=== PATIENT | female | born 1970 | race American Indian/Alaskan Native ===

== ENCOUNTER 2019-06-05 11:27 | Observation (INO) | payer OTHER ==
--- NOTE | 2019-06-05 11:46 | Event Note ---
ED Screening Note Date of service: 06/05/19 Time: 11:38 ED Screening Note: 49 y/o female comes in for abdominal pain times months. Has a headache. Pain 06/04. This initial assessment/diagnostic orders/clinical plan/treatment(s) is/are subject to change based on patients health status, clinical progression and re- assessment by fellow clinical providers in the ED. Further treatment and workup at subsequent clinical providers discretion. Patient/guardian urged not to elope from the ED as their condition may be serious if not clinically assessed and managed. Initial orders include:
--- NOTE | 2019-06-05 12:14 | XRay Report ---
CHEST 2 VIEWS INDICATION: epigastric pain elevated Blood pressure. COMPARISON: None FINDINGS: Support devices: None. Heart: Within normal limits. Lungs/pleura: No acute air space or interstitial disease. No pneumothorax. Additional findings: None. IMPRESSION: No acute findings. Signer Name: Daryl Moreno Jr, MD Signed: 06/05/2019 12:10 PM Workstation Name: [id number]
[2019-06-05] MEDS ORDERED: ZOFRAN IV ONE (13:03)
[2019-06-05] MEDS ORDERED: BENTYL IM ONE (13:03)
[2019-06-05] MEDS ORDERED: APRESOLINE IV ONE (13:06)
[2019-06-05 13:21] LABS: Basophils % (Auto) 0.3 % (0.0-1.8); Hematocrit 44.5 % (30.3-42.9); Lymphocytes # (Auto) 1.1 K/mm3 (1.2-5.4); Lymphocytes % (Auto) 15.7 % (13.4-35.0); Mean Corpuscular HGB Conc 34 % (30-34); Mean Corpuscular Volume 90 fl (79-97); Monocytes # (Auto) 0.2 K/mm3 (0.0-0.8); Monocytes % (Auto) 3.3 % (0.0-7.3); Platelet Count 238 K/mm3 (140-440); Red Blood Count 4.95 M/mm3 (3.65-5.03); Red Cell Distribution Width 14.2 % (13.2-15.2)
[2019-06-05 13:27] LABS: Bacteria,Urine 3+ /HPF (Negative); Bilirubin,Urine NEG (Negative); Blood,Urine SM (Negative); Color,Urine Yellow (Yellow); Hyaline Casts,Urine 1 /LPF; Mucus,Urine FEW /HPF; Urobilinogen,Urine < 2.0 mg/dL (<2.0)
[2019-06-05 13:27] LABS: Alanine Aminotransferase 8 units/L (7-56); Albumin 4.7 g/dL (3.9-5); BUN/Creatinine Ratio 15; Blood Urea Nitrogen 12 mg/dL (7-17); Calcium 9.6 mg/dL (8.4-10.2); Hemolysis Index 1
[2019-06-05 13:28] LABS: Bilirubin,Direct < 0.2 mg/dL (0-0.2)
[2019-06-05] MEDS ORDERED: K-DUR PO ONE (13:46)
[2019-06-05] MEDS ORDERED: MORPHINE IV ONE (14:50)
--- NOTE | 2019-06-05 14:51 | Cat Scan Report ---
CT ABDOMEN AND PELVIS WITH CONTRAST HISTORY: Abdominal pain for 3 months COMPARISON: None. TECHNIQUE: Axial CT images were obtained through the abdomen and pelvis after 100 cc of Omnipaque 300 intravenously. Sagittal and coronal reformatted images. All CT scans at this location are performed using CT dose reduction for ALARA by means of automated exposure control. FINDINGS: CT ABDOMEN: Lung Bases: Clear. Liver: No significant abnormality. Biliary: No significant abnormality. Spleen: No significant abnormality. Unenlarged. Pancreas: No significant abnormality. Adrenals: No significant abnormality. Kidneys: No significant abnormality. Lymphatics: No lymphadenopathy. Vasculature: No significant abnormality. Bowel/Peritoneum: No evidence for bowel obstruction or focal inflammation. There are scattered divert icula throughout the length of the colon. No free fluid or free air. Normal appendix. CT PELVIS: : Hysterectomy changes are suspected. No adnexal abnormality. The bladder and distal ureters are wi thin normal limits. Osseous Structures: No significant abnormality. Additional Findings: None IMPRESSION: No acute process is identified in the abdomen or pelvis. Hysterectomy. Mild diverticulosis of the colon. Signer Name: Daryl Moreno Jr, MD Signed: 06/05/2019 2:47 PM Workstation Name: [id number]
--- NOTE | 2019-06-05 15:11 | Emergency Department Report ---
HPI - General Chief Complaint: Abdominal Pain Time Seen by Provider: 06/05/19 11:37 - HPI HPI: 49-year-old -Citizen Of [place] female presents to the emergency department with complaint of mid upper abdominal pain with nausea and vomiting. Patient states that it feels like there is something "sitting in there." She describes it as a progressively worsening pain. While overall it has been going on for the past 2 months, it has worsened over the past few days. She says that she will get increased abdominal pain, nausea and vomiting with any food or liquid that she consumes. The patient has tried laxatives, cleansers, tea, [id number] medication, and nothing has provided her any relief. She says she has been evaluated at other emergency departments and has even seen gastroenterology and "nobody can figure out what is wrong." She is adamant that there is something causing her pain. She denies any dysuria, vaginal bleeding or discharge, fever. She has a primary care physician but they are new to her with this new insurance and she has not yet seen them and was told it was 3 weeks until she could get an appointment. ED Past Medical Hx - Past Medical History Previous Medical History?: Yes Hx Hypertension: Yes - Surgical History Past Surgical History?: Yes Additional Surgical History: Hysterectomy - Social History Smoking Status: Never Smoker Substance Use Type: None - Medications Home Medications: Home Medications Medication Instructions Recorded Confirmed Last Taken Type amLODIPine [Norvasc] 10 mg PO DAILY 06/05/19 06/05/19 06/05/19 History ED Review of Systems ROS: Stated complaint: CHEST PAINS/UPSET STOMACH Other details as noted in HPI Comment: All other systems reviewed and negative Constitutional: denies: chills, fever Eyes: denies: eye pain, vision change ENT: denies: ear pain, throat pain Respiratory: denies: cough, shortness of breath Cardiovascular: denies: chest pain, palpitations Gastrointestinal: abdominal pain, nausea, vomiting Genitourinary: denies: dysuria, discharge Musculoskeletal: denies: back pain, arthralgia Skin: denies: rash, lesions Neurological: denies: headache, weakness Physical Exam - Physical Exam Vital Signs: Vital Signs 06/05/19 06/05/19 06/05/19 11:46 13:17 14:30 Temperature 98.1 F Pulse Rate 110 H 83 86 Respiratory 18 16 Rate Blood Pressure 244/133 237/136 Blood Pressure 190/108 [Left] O2 Sat by Pulse 99 96 Oximetry 06/05/19 14:38 Temperature Pulse Rate 100 H Respiratory 16 Rate Blood Pressure Blood Pressure 190/101 [Left] O2 Sat by Pulse 96 Oximetry Physical Exam: GENERAL: The patient is well-developed well-nourished. HENT: Normocephalic. Atraumatic. Patient has moist mucous membranes. EYES: Extraocular motions are intact. Pupils equal reactive to light bilaterally. NECK: Supple. Trachea is midline. CHEST/LUNGS: Clear to auscultation. There is no respiratory distress noted. HEART/CARDIOVASCULAR: Regular. There is mild tachycardia. There is no murmur. ABDOMEN: Abdomen is soft. Upper abdominal tenderness to palpation. Mild guarding. Patient has normal bowel sounds. There is no abdominal distention. SKIN: Skin is warm and dry. NEURO: The patient is awake, alert, and oriented. The patient is cooperative. The patient has no focal neurologic deficits. Normal speech. MUSCULOSKELETAL: There is no tenderness or deformity. There is no evidence of acute injury. ED Course Vital Signs 06/05/19 06/05/19 06/05/19 11:46 13:17 14:30 Temperature 98.1 F Pulse Rate 110 H 83 86 Respiratory 18 16 Rate Blood Pressure 244/133 237/136 Blood Pressure 190/108 [Left] O2 Sat by Pulse 99 96 Oximetry 06/05/19 14:38 Temperature Pulse Rate 100 H Respiratory 16 Rate Blood Pressure Blood Pressure 190/101 [Left] O2 Sat by Pulse 96 Oximetry ED Medical Decision Making - Lab Data Result diagrams: 06/05/19 12:26 06/05/19 12:26 - EKG Data -: EKG Interpreted by Me EKG shows normal: sinus rhythm, axis, intervals, QRS complexes, ST-T waves Rate: normal - EKG Data When compared to previous EKG there are: previous EKG unavailable Interpretation: normal EKG - Radiology Data Radiology results: report reviewed, image reviewed interpreted by me: Chest x-ray does not show any acute process. There are no pleural effusions, obvious pneumonia and there is no pneumothorax. CT of the abdomen and pelvis with IV contrast shows some scattered diverticula but otherwise no acute process. Previous hysterectomy. - Medical Decision Making This patient presents with acute on chronic abdominal pain with some nausea and vomiting. On examination she has reproducible upper abdominal tenderness to palpation with some mild guarding. The abdomen is soft, nondistended. Patient's labs have been unremarkable. CT of the abdomen and pelvis with IV contrast shows some scattered diverticula but no diverticulitis and no other acute process. Patient was given some Bentyl, Zofran, morphine and continues to have moderate to significant abdominal discomfort. Her blood pressure came down to a slightly more reasonable level but is still quite elevated with a systolic of 190. For these reasons, the patient will be admitted to the hospital for further evaluation and treatment and was accepted for admission by the hospitalist, Dr. Pleitez. - Differential Diagnosis pancreatitis, cholelithiasis, cholecystitis, gastritis Critical Care Time: No Critical care attestation.: If time is entered above; I have spent that time in minutes in the direct care of this critically ill patient, excluding procedure time. ED Disposition Clinical Impression: Intractable abdominal pain, Hypertensive urgency Disposition: 09 OP ADMIT IP TO THIS HOSP Is pt being admited?: Yes Condition: Stable
[2019-06-05] MEDS ORDERED: SODIUM CHLORIDE FLUSH SYRINGE 10 ML IV PRN (18:03)
[2019-06-05] MEDS ORDERED: PERCOCET 5/325 PO PRN (18:03)
[2019-06-05] MEDS ORDERED: DILAUDID IV PRN (18:03)
[2019-06-05] MEDS ORDERED: ZOFRAN IV PRN (18:03)
[2019-06-05] MEDS ORDERED: REGLAN IV PRN (18:03)
[2019-06-05] MEDS ORDERED: TYLENOL PO PRN (18:03)
[2019-06-05] MEDS ORDERED: NACL 0.9% 1000 ML 1,000 ML IV SCH (19:00)
[2019-06-05] MEDS ORDERED: APRESOLINE IV PRN (19:10)
--- NOTE | 2019-06-05 19:31 | History and Physical Report ---
History of Present Illness Date of examination: 06/05/19 Date of admission: 06/05/19 15:08 Chief complaint: Recurrent abdominal pain for 10 months--more so for the last 1 week History of present illness: 49-year-old -[place] female comes to the emergency room for recurrent abdominal pain associated with nausea. Apparently the pain has been going on for last 10 months and she is frustrated that nobody has given proper diagnosis. Pain has been more for the last 1 week. Pain is epigastric and suprapubic region. She complains that pain medicine is given to relieve symptoms but no one is getting to the bottom of the problem. Patient has had endometriosis and had laparoscopic surgery for endometriosis lesions removed. She feels that must have caused scar tissue giving her recurrent pain. Patient has epigastric and suprapubic pain which is sharp and intermittent in nature. Pain is about 8 on a scale of 1-10. Patient had an upper endoscopy about a months ago and was apparently normal. No fever or chills. No dysuria or flank pain. Nausea pr esent but no vomiting. Past Medical History Previous Medical History?: Yes Hypertension Recurrent abdominal pain for 10 months Surgical History Past Surgical History?: Yes Additional Surgical History: Hysterectomy Laparoscopy 3 for endometriosis before the hysterectomy Social History Smoking Status: Never Smoker Substance Use Type: None Family history Htn Medications Home Medications: Home Medications Medication Instructions Recorded Confirmed Last Taken Type amLODIPine [Norvasc] 10 mg PO DAILY 06/05/19 06/05/19 06/05/19 History Review of Systems ROS: Stated complaint: CHEST PAINS/UPSET STOMACH Other details as noted in HPI Comment: All other systems reviewed and negative Constitutional: denies: chills, fever Eyes: denies: eye pain, vision change ENT: denies: ear pain, throat pain Respiratory: denies: cough, shortness of breath Cardiovascular: denies: chest pain, palpitations Gastrointestinal: abdominal pain, nausea, vomiting Genitourinary: denies: dysuria, discharge Musculoskeletal: denies: back pain, arthralgia Skin: denies: rash, lesions Neurological: denies: headache, weakness Medications and Allergies Allergies Allergy/AdvReac Type Severity Reaction Status Date / Time No Known Allergies Allergy Verified 06/05/19 14:39 Home Medications Medication Instructions Recorded Confirmed Last Taken Type amLODIPine [Norvasc] 10 mg PO DAILY 1006/05/19 06/05/19 History Active Meds: Active Medications Acetaminophen (Tylenol) 650 mg PO Q4H PRN PRN Reason: Pain MILD(1-3)/Fever >100.5/[place] Amlodipine Besylate (Norvasc) 10 mg PO DAILY [facility] Carvedilol (Coreg) 12.5 mg PO BID CAROLE Famotidine (Pepcid) 20 mg IV BID [facility]OLE Hydralazine HCl (Apresoline) 20 mg IV Q3H PRN PRN Reason: Blood Pressure Hydromorphone HCl (Dilaudid) 1 mg IV Q3H PRN PRN Reason: Pain , Severe (7-10) Last Admin: 06/05/19 18:28 Dose: 1 mg Documented by: Sodium Chloride (Nacl 0.9% 1000 Ml) 1,000 mls @ 75 mls/hr IV DIRECT CAROLE Last Admin: 06/05/19 18:28 Dose: 75 mls/hr Documented by: Losartan Potassium (Cozaar) 100 mg PO QDAY [facility] Metoclopramide HCl (Reglan) 10 mg IV Q6H PRN PRN Reason: Nausea And Vomiting Ondansetron HCl (Zofran) 4 mg IV Q3H PRN PRN Reason: Nausea And Vomiting Last Admin: 06/05/19 18:28 Dose: 4 mg Documented by: Oxycodone/Acetaminophen (Percocet 5/325) 1 tab PO Q6H PRN PRN Reason: Pain, Moderate (4-6) Sodium Chloride (Sodium Chloride Flush Syringe 10 Ml) 10 ml IV BID [facility] Sodium Chloride (Sodium Chloride Flush Syringe 10 Ml) 10 ml IV PRN PRN PRN Reason: LINE FLUSH Exam - Physical Exam Narrative exam: Lying in bed complaining of abdominal pain - Constitutional Vitals: Temp Pulse Resp BP Pulse Ox 99.1 F 89 22 186/120 96 06/05/19 17:21 06/05/19 17:21 06/05/19 17:21 06/05/19 17:21 06/05/19 17:21 General appearance: Present: mild distress, well-nourished - EENT Eyes: Present: PERRL ENT: hearing intact, clear oral mucosa - Neck Neck: Present: supple, normal ROM - Respiratory Respiratory effort: normal Respiratory: bilateral: CTA - Cardiovascular Heart rate: 78 Rhythm: regular Heart Sounds: Present: S1 & S2. Absent: rub, click - Extremities Extremities: no ischemia, pulses intact, pulses symmetrical, No edema Peripheral Pulses: within normal limits - Abdominal General gastrointestinal: Present: soft, tender, non-distended, normal bowel sounds Localized gastrointestinal: tender: diffuse Female genitourinary: Present: normal - Rectal Rectal Exam: deferred - Integumentary Integumentary: Present: clear, warm, dry - Musculoskeletal Musculoskeletal: gait normal, strength equal bilaterally - Psychiatric Psychiatric: appropriate mood/affect, intact judgment & insight - Neurologic Neurologic: CNII-XII intact, moves all extremities - Allied Health Allied health notes reviewed: nursing, case management Results - Labs CBC & Chem 7: 06/05/19 12:26 06/05/19 12:26 Labs: Laboratory Last Values WBC 7.1 K/mm3 (4.5-11.0) 06/05/19 12:26 RBC 4.95 M/mm3 (3.65-5.03) 06/05/19 12:26 Hgb 15.0 gm/dl (10.1-14.3) H 06/05/19 12:26 Hct 44.5 % (30.3-42.9) H 06/05/19 12:26 MCV 90 fl (79-97) 06/05/19 12:26 MCH 30 pg (28-32) 06/05/19 12:26 MCHC 34 % (30-34) 06/05/19 12:26 RDW 14.2 % (13.2-15.2) 06/05/19 12:26 Plt Count 238 K/mm3 (140-440) 06/05/19 12:26 Lymph % (Auto) 15.7 % (13.4-35.0) 06/05/19 12:26 [place] % (Auto) 3.3 % (0.0-7.3) 06/05/19 12:26 Eos % (Auto) 0.0 % (0.0-4.3) 06/05/19 12:26 Baso % (Auto) 0.3 % (0.0-1.8) 06/05/19 12:26 Lymph # 1.1 K/mm3 (1.2-5.4) L 06/05/19 12:26 [place] # 0.2 K/mm3 (0.0-0.8) 06/05/19 12:26 Eos # 0.0 K/mm3 (0.0-0.4) 06/05/19 12:26 Baso # 0.0 K/mm3 (0.0-0.1) 06/05/19 12:26 Seg Neutrophils % 80.7 % (40.0-70.0) H 06/05/19 12:26 Seg Neutrophils # 5.7 K/mm3 (1.8-7.7) 06/05/19 12:26 Sodium 141 mmol/L (137-145) 06/05/19 12:26 Potassium 3.2 mmol/L (3.6-5.0) L 06/05/19 12:26 Chloride 101.3 mmol/L (98-107) 06/05/19 12:26 Carbon Dioxide 25 mmol/L (22-30) 06/05/19 12:26 Anion Gap 18 mmol/L 06/05/19 12:26 BUN 12 mg/dL (7-17) 06/05/19 12:26 Creatinine 0.8 mg/dL (0.7-1.2) 06/05/19 12:26 Estimated GFR > 60 ml/min 06/05/19 12:26 BUN/Creatinine Ratio 15 % 06/05/19 12:26 Glucose 117 mg/dL (65-100) H 06/05/19 12:26 Calcium 9.6 mg/dL (8.4-10.2) 06/05/19 12:26 Total Bilirubin 0.20 mg/dL (0.1-1.2) 06/05/19 12:26 Direct Bilirubin < 0.2 mg/dL (0-0.2) 06/05/19 12:26 Indirect Bilirubin 0.0 mg/dL 06/05/19 12:26 AST 14 units/L (5-40) 06/05/19 12:26 ALT 8 units/L (7-56) 06/05/19 12:26 Alkaline Phosphatase 99 units/L (35-129) 06/05/19 12:26 Troponin T < 0.010 ng/mL (0.00-0.029) 06/05/19 12:26 Total Protein 8.2 g/dL (6.3-8.2) 06/05/19 12:26 Albumin 4.7 g/dL (3.9-5) 06/05/19 12:26 Albumin/Globulin Ratio 1.3 % 06/05/19 12:26 Lipase 35 units/L (13-60) 06/05/19 12:26 Urine Color Yellow (Yellow) 06/05/19 12:42 Urine Turbidity Clear (Clear) 06/05/19 12:42 Urine pH 7.0 (5.0-7.0) 06/05/19 12:42 Ur Specific [place] 1.013 (1.003-1.030) 06/05/19 12:42 Urine Protein 30 mg/dl mg/dL (Negative) 06/05/19 12:42 Urine Glucose (UA) 50 mg/dL (Negative) 06/05/19 12:42 Urine Ketones Tr mg/dL (Negative) 06/05/19 12:42 Urine Blood Sm (Negative) 06/05/19 12:42 Urine Nitrite Neg (Negative) 06/05/19 12:42 Urine Bilirubin Neg (Negative) 06/05/19 12:42 Urine Urobilinogen < 2.0 mg/dL (<2.0) 06/05/19 12:42 Ur Leukocyte Esterase Neg (Negative) 06/05/19 12:42 Urine WBC (Auto) 2.0 /HPF (0.0-6.0) 06/05/19 12:42 Urine RBC (Auto) 7.0 /HPF (0.0-6.0) 06/05/19 12:42 U Epithel Cells (Auto) 3.0 /HPF (0-13.0) 06/05/19 12:42 Urine Bacteria (Auto) 3+ /HPF (Negative) 06/05/19 12:42 Hyaline Casts 1 /LPF 06/05/19 12:42 Urine Mucus Few /HPF 06/05/19 12:42 - Imaging and Cardiology EKG: report reviewed (Sinus rhythm 78) CT scan - abdomen: report reviewed Imaging and Cardiology: CT Abdomen IMPRESSION: No acute process is identified in the abdomen or pelvis. Hysterectomy. Mild diverticulosis of the colon. Assessment and Plan Advance Directives: Yes (Full code) VTE prophylaxis?: Chemical Plan of care discussed with patient/family: Yes - Patient Problems (1) Intractable abdominal pain Current Visit: Yes Status: Acute Plan to address problem: Workup for scar tissue and peptic ulcer disease MRI of the abdomen and pelvis with contrast ordered. Surgery consult and GI consult requested. (2) Hypertensive urgency Current Visit: Yes Status: Acute Plan to address problem: Losartan and coreg added Hydralazine 10 mg IV q3 prn for BP more than 160/100 (3) Hypokalemia Current Visit: Yes Status: Acute Plan to address problem: Supplemented (4) DVT prophylaxis Current Visit: Yes Status: Acute Plan to address problem: lovenox 40 mg po qd
--- NOTE | 2019-06-05 19:57 | History and Physical Report ---
History of Present Illness Date of examination: 06/05/19 Date of admission: 06/05/19 15:08 Chief complaint: Recurrent abdominal pain for 10 months--more so for the last 1 week History of present illness: 49-year-old -[place] female comes to the emergency room for recurrent abdominal pain associated with nausea. Apparently the pain has been going on for last 10 months and she is frustrated that nobody has given proper diagnosis. Pain has been more for the last 1 week. Pain is epigastric and suprapubic region. She complains that pain medicine is given to relieve symptoms but no one is getting to the bottom of the problem. Patient has had endometriosis and had laparoscopic surgery for endometriosis lesions removed. She feels that must have caused scar tissue giving her recurrent pain. Patient has epigastric and suprapubic pain which is sharp and intermittent in nature. Pain is about 8 on a scale of 1-10. Patient had an upper endoscopy about a months ago and was apparently normal. No fever or chills. No dysuria or flank pain. Nausea pr esent but no vomiting. Past Medical History Previous Medical History?: Yes Hypertension Recurrent abdominal pain for 10 months Surgical History Past Surgical History?: Yes Additional Surgical History: Hysterectomy Laparoscopy 3 for endometriosis before the hysterectomy Social History Smoking Status: Never Smoker Substance Use Type: None Family history Htn Medications Home Medications: Home Medications Medication Instructions Recorded Confirmed Last Taken Type amLODIPine [Norvasc] 10 mg PO DAILY 06/05/19 06/05/19 06/05/19 History Review of Systems ROS: Stated complaint: CHEST PAINS/UPSET STOMACH Other details as noted in HPI Comment: All other systems reviewed and negative Constitutional: denies: chills, fever Eyes: denies: eye pain, vision change ENT: denies: ear pain, throat pain Respiratory: denies: cough, shortness of breath Cardiovascular: denies: chest pain, palpitations Gastrointestinal: abdominal pain, nausea, vomiting Genitourinary: denies: dysuria, discharge Musculoskeletal: denies: back pain, arthralgia Skin: denies: rash, lesions Neurological: denies: headache, weakness Medications and Allergies Allergies Allergy/AdvReac Type Severity Reaction Status Date / Time No Known Allergies Allergy Verified 06/05/19 14:39 Home Medications Medication Instructions Recorded Confirmed Last Taken Type amLODIPine [Norvasc] 10 mg PO DAILY 1006/05/19 06/05/19 History Active Meds: Active Medications Acetaminophen (Tylenol) 650 mg PO Q4H PRN PRN Reason: Pain MILD(1-3)/Fever >100.5/[place] Amlodipine Besylate (Norvasc) 10 mg PO DAILY [facility] Carvedilol (Coreg) 12.5 mg PO BID CAROLE Famotidine (Pepcid) 20 mg IV BID [facility] Hydralazine HCl (Apresoline) 20 mg IV Q3H PRN PRN Reason: Blood Pressure Hydromorphone HCl (Dilaudid) 1 mg IV Q3H PRN PRN Reason: Pain , Severe (7-10) Last Admin: 06/05/19 18:28 Dose: 1 mg Documented by: Sodium Chloride (Nacl 0.9% 1000 Ml) 1,000 mls @ 75 mls/hr IV DIRECT CAROLE Last Admin: 06/05/19 18:28 Dose: 75 mls/hr Documented by: Losartan Potassium (Cozaar) 100 mg PO QDAY [facility] Metoclopramide HCl (Reglan) 10 mg IV Q6H PRN PRN Reason: Nausea And Vomiting Ondansetron HCl (Zofran) 4 mg IV Q3H PRN PRN Reason: Nausea And Vomiting Last Admin: 06/05/19 18:28 Dose: 4 mg Documented by: Oxycodone/Acetaminophen (Percocet 5/325) 1 tab PO Q6H PRN PRN Reason: Pain, Moderate (4-6) Sodium Chloride (Sodium Chloride Flush Syringe 10 Ml) 10 ml IV BID [facility] Sodium Chloride (Sodium Chloride Flush Syringe 10 Ml) 10 ml IV PRN PRN PRN Reason: LINE FLUSH Exam - Constitutional Vitals: Temp Pulse Resp BP Pulse Ox 99.1 F 89 22 186/120 96 06/05/19 17:21 06/05/19 17:21 06/05/19 17:21 06/05/19 17:21 06/05/19 17:21 Results - Labs CBC & Chem 7: 06/05/19 12:26 06/05/19 12:26 Labs: Laboratory Last Values WBC 7.1 K/mm3 (4.5-11.0) 06/05/19 12:26 RBC 4.95 M/mm3 (3.65-5.03) 06/05/19 12:26 Hgb 15.0 gm/dl (10.1-14.3) H 06/05/19 12:26 Hct 44.5 % (30.3-42.9) H 06/05/19 12:26 MCV 90 fl (79-97) 06/05/19 12:26 MCH 30 pg (28-32) 06/05/19 12: MCHC 34 % (30-34) 06/05/19 12:26 RDW 14.2 % (13.2-15.2) 06/05/19 12:26 Plt Count 238 K/mm3 (140-440) 06/05/19 12:26 Lymph % (Auto) 15.7 % (13.4-35.0) 06/05/19 12:26 [place] % (Auto) 3.3 % (0.0-7.3) 06/05/19 12:26 Eos % (Auto) 0.0 % (0.0-4.3) 06/05/19 12:26 Baso % (Auto) 0.3 % (0.0-1.8) 06/05/19 12:26 Lymph # 1.1 K/mm3 (1.2-5.4) L 06/05/19 12:26 [place] # 0.2 K/mm3 (0.0-0.8) 06/05/19 12:26 Eos # 0.0 K/mm3 (0.0-0.4) 06/05/19 12:26 Baso # 0.0 K/mm3 (0.0-0.1) 06/05/19 12:26 Seg Neutrophils % 80.7 % (40.0-70.0) H 06/05/19 12:26 Seg Neutrophils # 5.7 K/mm3 (1.8-7.7) 06/05/19 12:26 Sodium 141 mmol/L (137-145) 06/05/19 12:26 Potassium 3.2 mmol/L (3.6-5.0) L 06/05/19 12:26 Chloride 101.3 mmol/L (98-107) 06/05/19 12:26 Carbon Dioxide 25 mmol/L (22-30) 06/05/19 12:26 Anion Gap 18 mmol/L 06/05/19 12:26 BUN 12 mg/dL (7-17) 06/05/19 12:26 Creatinine 0.8 mg/dL (0.7-1.2) 06/05/19 12:26 Estimated GFR > 60 ml/min 06/05/19 12:26 BUN/Creatinine Ratio 15 % 06/05/19 12:26 Glucose 117 mg/dL (65-100) H 06/05/19 12:26 Hemoglobin A1c 5.5 % (4-6) 06/05/19 18:20 Calcium 9.6 mg/dL (8.4-10.2) 06/05/19 12:26 Total Bilirubin 0.20 mg/dL (0.1-1.2) 06/05/19 12:26 Direct Bilirubin < 0.2 mg/dL (0-0.2) 06/05/19 12:26 Indirect Bilirubin 0.0 mg/dL 06/05/19 12:26 AST 14 units/L (5-40) 06/05/19 12:26 ALT 8 units/L (7-56) 06/05/19 12:26 Alkaline Phosphatase 99 units/L (35-129) 06/05/19 12:26 Troponin T < 0.010 ng/mL (0.00-0.029) 06/05/19 12:26 Total Protein 8.2 g/dL (6.3-8.2) 06/05/19 12:26 Albumin 4.7 g/dL (3.9-5) 06/05/19 12:26 Albumin/Globulin Ratio 1.3 % 06/05/19 12:26 Lipase 35 units/L (13-60) 06/05/19 12:26 Urine Color Yellow (Yellow) 06/05/19 12:42 Urine Turbidity Clear (Clear) 06/05/19 12:42 Urine pH 7.0 (5.0-7.0) 06/05/19 12:42 Ur Specific [place] 1.013 (1.003-1.030) 06/05/19 12:42 Urine Protein 30 mg/dl mg/dL (Negative) 06/05/19 12:42 Urine Glucose (UA) 50 mg/dL (Negative) 06/05/19 12:42 Urine Ketones Tr mg/dL (Negative) 06/05/19 12:42 Urine Blood Sm (Negative) 06/05/19 12:42 Urine Nitrite Neg (Negative) 06/05/19 12:42 Urine Bilirubin Neg (Negative) 06/05/19 12:42 Urine Urobilinogen < 2.0 mg/dL (<2.0) 06/05/19 12:42 Ur Leukocyte Esterase Neg (Negative) 06/05/19 12:42 Urine WBC (Auto) 2.0 /HPF (0.0-6.0) 06/05/19 12:42 Urine RBC (Auto) 7.0 /HPF (0.0-6.0) 06/05/19 12:42 U Epithel Cells (Auto) 3.0 /HPF (0-13.0) 06/05/19 12:42 Urine Bacteria (Auto) 3+ /HPF (Negative) 06/05/19 12:42 Hyaline Casts 1 /LPF 06/05/19 12:42 Urine Mucus Few /HPF 06/05/19 12:42 Assessment and Plan - Patient Problems (1) Intractable abdominal pain Current Visit: Yes Status: Acute (2) Hypertensive urgency Current Visit: Yes Status: Acute
[2019-06-05] MEDS: PEPCID IV SCH (21:34)
[2019-06-05] MEDS: COZAAR PO SCH (21:34)
[2019-06-05] MEDS: COREG PO SCH ×2 (21:34→22:15)
[2019-06-05] MEDS: SODIUM CHLORIDE FLUSH SYRINGE 10 ML IV SCH (21:35)
[2019-06-06 05:59] LABS: Basophils % (Auto) 0.5 % (0.0-1.8); Hematocrit 43.4 % (30.3-42.9); Hemoglobin 14.7 gm/dl (10.1-14.3); Lymphocytes # (Auto) 2.3 K/mm3 (1.2-5.4); Lymphocytes % (Auto) 26.5 % (13.4-35.0); Mean Corpuscular HGB Conc 34 % (30-34); Mean Corpuscular Volume 90 fl (79-97); Monocytes # (Auto) 0.4 K/mm3 (0.0-0.8); Monocytes % (Auto) 4.9 % (0.0-7.3); Platelet Count 251 K/mm3 (140-440); Red Blood Count 4.81 M/mm3 (3.65-5.03); Red Cell Distribution Width 14.4 % (13.2-15.2)
[2019-06-06 06:29] LABS: Alanine Aminotransferase 8 units/L (7-56); Albumin 4.4 g/dL (3.9-5); BUN/Creatinine Ratio 11; Blood Urea Nitrogen 12 mg/dL (7-17); Calcium 9.6 mg/dL (8.4-10.2); Hemolysis Index 1
--- NOTE | 2019-06-06 07:45 | Discharge Summary ---
Providers - Providers Date of Admission: 06/05/19 15:08 Date of discharge: 06/06/19 Attending physician: RM KLEIN 06/05/19 18:04 Consult to Physician [CONS] Routine Comment: Consulting Provider: KRYS KIRKPATRICK Physician Instructions: Reason For Exam: Recurrent abd pain Primary care physician: [employer] Hospitalization Condition: Stable Hospital course: Patient is a 49 yo woman with a history of Endometriosis s/p laparoscopy who presents with abd pains * CT Abd/pelvis with contrast IMPRESSION: No acute process is identified in the abdomen or pelvis. Hysterectomy. Mild diverticulosis of the colon. Acute on chronic abdominal pains most likely related to Endometrosis: patient will be best serviced at her providers who manages her Endometrosis at [facility]. Ibanez, will discharge will symptomatic support Hypertensive urgency better controlled: Losartan and coreg added Hypokalemia Supplemented Disposition: DC-01 TO HOME OR SELFCARE Time spent for discharge: 33 min Core Measure Documentation - Palliative Care Palliative Care/ Comfort Measures: Not Applicable - Core Measures Any of the following diagnoses?: none - VTE Discharge Requirements Deep Vein Thrombosis/Pulmonary Embolism Present on Admission: No Has pt received <5 days of overlap therapy or INR<2.0: No Anticoagulant overlap therapy prescribed at discharge: No Contraindication No Overlap Therapy order at DC: Not Indicated Exam - Physical Exam Narrative exam: Gen: WDWN, NAD, Awake, Alert, Orientated HEENT: NCAT, EOMI, PERRL, OP Clear Neck: supple, no adenopathy, no thyromegaly, no JVD CVS/Heart: RRR, normal S1S2, pulses present bilaterally Chest/Lungs: CTA B, Symmetrical chest expansion, good air entry bilaterally GI/Abdomen: soft, NTND, good bowel sounds, no guarding or rebound /Bladder: no suprapubic tenderness, no CVA or paraspinal tenderness Extermity/Skin: no c/c/e, no obvious rash MSK: FROM x 4 Neuro: CN 2-12 grossly intact, no new focal deficits Psych: calm - Constitutional Vitals: Temp Pulse Resp BP Pulse Ox 99.0 F 77 20 137/77 96 06/06/19 05:15 06/06/19 05:15 06/06/19 05:15 06/06/19 05:15 06/06/19 05:15 Plan Activity: other (no strenous activity unless cleared by PCP) Diet: advance as tolerated Follow up with: PRIMARY CARE,MD [Primary Care Provider] - 3-5 Days Prescriptions: RX: amLODIPine [Norvasc] 10 mg PO DAILY 2 Days #30 RX: oxyCODONE /ACETAMINOPHEN [Percocet 5/325 mg] 1 tab PO Q6H PRN #15 tablet PRN Reason: Pain , Severe (7-10) Ondansetron [Zofran Odt] 4 mg PO Q4H PRN #15 tab.rapdis PRN Reason: Nausea
[2019-06-06] MEDS: PEPCID IV SCH (10:26)
[2019-06-06] MEDS: SODIUM CHLORIDE FLUSH SYRINGE 10 ML IV SCH (10:26)
[2019-06-06] MEDS: COZAAR PO SCH (10:29)
[2019-06-06] MEDS: COREG PO SCH (10:30)
[2019-06-06 10:31] VITALS: BP 155/87
== END 2019-06-06 12:01 | disposition home or self-care (01) ==
LOC: ED 11:27 → 3A 15:08
PROVIDERS: ADMIT Internal Medicine; ATTEND Internal Medicine
DX: R10.9 Unspecified abdominal pain (principal); I16.0 Hypertensive urgency; E87.6 Hypokalemia; R11.2 Nausea with vomiting, unspecified
CPT/HCPCS: 36415; 71046; 74177; 80048; 80053; 80076; 81001; 83036; 83690; 84484; 85025; 93005; 93010; 96361; 96372; 96374; 96375; 96376; 99284; G0378; J0360; J0500; J1170; J2270; J2405; J2765; J7030; Q9967